=== PATIENT | male | born 1980 | race African-American/Black ===

== ENCOUNTER 2018-04-29 14:13 | Observation (INO) | payer BC ==
[2018-04-29] MEDS ORDERED: NS 0.9% 1000 ML* 1,000 ML IV ONE (14:35)
[2018-04-29] MEDS ORDERED: Ondansetron INJ* 2 MG/ML VIAL ONE (14:37)
[2018-04-29] MEDS: Ondansetron INJ* 2 MG/ML VIAL IV SCH ×3 (14:40→22:45)
--- NOTE | 2018-04-29 14:43 | ED ---
Syncope/Near Syncope - HPI Summary HPI Summary: This is shaquille Gómez documenting for attending Stalin Silvestre MD. This patient is a 37 year old M presenting to ED with a chief complaint of syncope at 1345 today. The patient was sitting and talking when the episode occurred. He remembers he was feeling a bit of cramping in the L cheek, flustered and flushed before the episode. He tried taking sips of water to make it go away and that was the last thing he remembered before he lost consciousness. The episode was witnessed by his . The CC is described as lasting 2 minutes. The patient rates the pain 0/10 in severity. Symptoms aggravated by nothing. Symptoms alleviated by spontaneous resolution. Patient reports fatigue, light-headedness/dizziness as the episode was occurring and currently, nausea after eating a cookie and currently, and palpitations shortly after the episode (currently resolved). Patient denies CP, blurred vision, and LEVINE. denies diaphoresis, pallor, vomiting, and shaking. He reports there was nothing unusual about his lunch or breakfast today. He had a similar episode when he was 18 and broke his jaw because of it. - History Of Current Complaint Chief Complaint: EDSyncope Time Seen by Provider: 04/29/18 14:21 Hx Obtained From: Patient, Family/Department Head [employer] Onset/Duration: Sudden Onset, Lasting Minutes - 2 minutes, Resolved Timing: Minutes - lasting 2 minutes Context: Witnessed, Loss Of Consciousness Activity At Onset: At Rest - sitting and talking Aggravating Factor(s): Nothing Alleviating Factor(s): Spontaneous Resolution Associated Signs And Symptoms: Other - Patient reports fatigue, light-headedness /dizziness as the episode was occurring and currently, nausea after eating a cookie and currently, and palpitations shortly after the episode (currently resolved). Patient denies CP, blurred vision, and LEVINE. denies diaphoresis, pallor, vomiting, and shaking. - Allergies/Home Medications Allergies/Adverse Reactions: Allergies Allergy/AdvReac Type Severity Reaction Status Date / Time No Known Allergies Allergy Verified 04/29/18 14:34 Home Medications: Home Medications NK [No Home Medications Reported] 04/29/18 [History Confirmed 04/29/18] PMH/Surg Hx/FS Hx/Imm Hx Endocrine/Hematology History: Denies: Hx Diabetes Cardiovascular History: Denies: Hx Coronary Artery Disease, Hx Hypertension - Surgical History Surgery Procedure, Year, and Place: jaw surgery when he was 18 yo Infectious Disease History: No Infectious Disease History: Denies: Traveled Outside the [place] in Last 30 Days - Family History Known Family History: Positive: Hypertension, Diabetes, Other Family History: Father heart attack age 56 - Social History Alcohol Use: None Substance Use Type: Reports: None Smoking Status (MU): Never Smoked Tobacco Review of Systems Positive: Fatigue. Negative: Skin Diaphoresis Negative: Blurred Vision Positive: Palpitations - shortly after the episode (currently resolved). Negative: Chest Pain Positive: Nausea - after eating a cookie and currently Positive: Other - denies pallor Neurological: Other - light-headedness/dizziness as the episode was occurring and currently; denies shaking Negative: Headache All Other Systems Reviewed And Are Negative: Yes Physical Exam - Summary Physical Exam Summary: VITAL SIGNS: Reviewed. GENERAL: Patient is a well-developed and nourished MALE who is lying comfortable in the stretcher. Patient is not in any acute respiratory distress. HEAD AND FACE: No signs of trauma. No ecchymosis, hematomas or skull depressions. No sinus tenderness. EYES: PERRLA, EOMI x 2, No injected conjunctiva, no nystagmus. EARS: Hearing grossly intact. Ear canals and tympanic membranes are within normal limits. MOUTH: Oropharynx within normal limits. NECK: Supple, trachea is midline, no adenopathy, no JVD, no carotid bruit, no c- spine tenderness, neck with full ROM. CHEST: Symmetric, no tenderness at palpation LUNGS: Clear to auscultation bilaterally. No wheezing or crackles. CVS: Regular rate and rhythm, S1 and S2 present, no murmurs or gallops appreciated. ABDOMEN: Soft, non-tender. No signs of distention. No rebound no guarding, and no masses palpated. Bowel sounds are normal. EXTREMITIES: FROM in all major joints, no edema, no cyanosis or clubbing. NEURO: Alert and oriented x 3. No acute neurological deficits. Speech is normal and follows commands. SKIN: Dry and warm GCS 15 Triage Information Reviewed: Yes Vital Signs On Initial Exam: Initial Vitals Temp Pulse Resp BP Pulse Ox 97.3 F 58 16 110/64 97 04/29/18 14:14 04/29/18 14:14 04/29/18 14:14 04/29/18 14:14 04/29/18 14:14 Vital Signs Reviewed: Yes Diagnostics - Vital Signs Vital Signs Temp Pulse Resp BP Pulse Ox 04/29/18 14:14 97.3 F 58 16 110/64 97 - Laboratory Result Diagrams: 04/29/18 14:37 04/29/18 14:37 Lab Statement: Any lab studies that have been ordered have been reviewed, and results considered in the medical decision making process. - Radiology CXR Radiology Interpretation Completed By: Radiologist - NORMAL CHEST. ED physician has reviewed this radiology report. - CT Brain CT CT Interpretation Completed By: Radiologist - NO ACUTE INTRACRANIAL PATHOLOGY. ED physician has reviewed this radiology report. - EKG 1423 Cardiac Rate: Bradycardia - 54 BPM EKG Rhythm: Sinus Bradycardia EKG Interpretation: No ST elevations Re-Evaluation - Re-Evaluation First Eval Re-Evaluation Time: 16:15 Comment: Discussed with the patient the plan for admission for the syncopal episode. His status is within normal limits. He understands and agrees with this plan. Course/Dx Assessment/Plan: The patient is a 37-year-old male who presents to the emergency department with a chief complaint of having syncopal episode. There was positive loss of consciousness. He was witnessed by a coworkers. This results without a significant abnormality except for slight normocytic normochromic anemia, glucose 126 and total CPK of 252. Head CT shows no acute intracranial pathology. Chest x-ray shows no acute pathology. EKG: Normal sinus rhythm without any ST elevations. In the ED course the patient continues to be asymptomatic. The patient was given IV fluids. Since the patient reported some palpitations I will need to rule out any type of arrhythmias. I discussed the case with from the hospitalist services and he agreed to admit the patient to his services further workup and management. - Diagnoses Differential Diagnosis/HQI/PQRI: Positive: Other - syncope Provider Diagnoses: Syncope - Physician Notifications Discussed Care of Patient With: Trell Brown Time Discussed With Above Provider: 16:29 Instructed by Provider To: Other - Consulted Dr. Brown at 1629 about the patient and he accepts the patient for admission. Discharge - Sign-Out/Discharge Documenting (check all that apply): Patient Departure - Discharge Plan Condition: Stable Disposition: ADMITTED TO [facility]
--- NOTE | 2018-04-29 14:49 | RAD ---
INDICATION: Syncope COMPARISON: None TECHNIQUE: An AP portable view obtained at 1433 hours is submitted. FINDINGS: Bones/Soft Tissues: There are no acute bony findings. Cardiomediastinal: The cardiomediastinal silhouette is normal. Lungs: There are no infiltrates. Pleura: There are no pleural effusions. Other: None IMPRESSION: NORMAL CHEST.
[2018-04-29 14:57] LABS: ABS Basophils 0 10^3/ul (0-0.2); ABS Eosinophils 0 10^3/ul (0-0.6); ABS Lymphocytes 1.8 10^3/ul (1.0-4.8); ABS Monocytes 0.4 10^3/ul (0-0.8); ABS Neutrophils 2.2 10^3/ul (1.5-7.7); ABS Nucleated RBC 0 10^3/ul; Hematocrit 39 % (42-52); Hemoglobin 13.6 g/dl (14.0-18.0); Lymphocyte % 39.7 % (25-47); Mean Corpuscular HGB Conc 35 g/dl (31-36); Mean Corpuscular Hemoglobin 31 pg (27-31); Mean Corpuscular Volume 88 fL (80-94); Mean Platelet Volume 8.3 um3 (7.4-10.4); Nucleated Red Blood Cells % 0.1; Platelet Count 189 10^3/ul (150-450); Red Blood Count 4.42 10^6/ul (4.00-5.40); Red Cell Distribution Width 13 % (10.5-15); White Blood Count 4.4 10^3/ul (3.5-10.8)
[2018-04-29 15:06] LABS: EGFR Non-African American 91.3 (>60)
--- NOTE | 2018-04-29 15:13 | RAD ---
HISTORY: Syncope COMPARISONS: None TECHNIQUE: Multiple contiguous axial CT scans were obtained of the head without intravenous contrast. FINDINGS: HEMORRHAGE/INFARCT: There is no hemorrhage or acute infarct. MASSES/SHIFT: There is no mass or shift. EXTRA-AXIAL SPACES: There are no extra-axial fluid collections. SULCI AND VENTRICLES: The sulci and ventricles are normal in size and position for the patient's stated age. CEREBRUM: There are no focal parenchymal abnormalities. BRAINSTEM: There are no focal parenchymal abnormalities. CEREBELLUM: There are no focal parenchymal abnormalities. VESSELS: The vessels are grossly normal. PARANASAL SINUSES: The paranasal sinuses are clear. ORBITS: The orbits are unremarkable. BONES AND SOFT TISSUE: No bone or soft tissue abnormalities are noted. OTHER: None IMPRESSION: NO ACUTE INTRACRANIAL PATHOLOGY.
[2018-04-29 17:14] LABS: Urine Appearance Clear; Urine Blood Negative (Negative); Urine Color Yellow; Urine Ketones Trace (Negative); Urine Protein Negative (Negative); Urine Specific Gravity 1.008 (1.010-1.030); Urine Urobilinogen Negative (Negative)
[2018-04-29] MEDS ORDERED: Acetaminophen TAB* 325 MG PO PRN (17:51)
[2018-04-29] MEDS ORDERED: Melatonin 3 MG TAB PO PRN (17:52)
[2018-04-29] MEDS ORDERED: Ondansetron ODT TAB* 4 MG SL PRN (17:52)
[2018-04-29] MEDS ORDERED: Potassium Chlor TAB* 20 MEQ TAB.ER PO ONE (17:56)
--- NOTE | 2018-04-29 21:47 | HP ---
HOSPITAL MEDICINE HISTORY AND PHYSICAL: DATE OF ADMISSION: 04/29/18 PRIMARY CARE PHYSICIAN: None. ATTENDING PHYSICIAN: Lala Pedro MD * (dictation provided by Sade Ghosh NP) CHIEF COMPLAINT: Episode of fainting. HISTORY OF PRESENT ILLNESS: Mr. Thibodeaux is a 37-year-old male with no significant past medical history other than a history of vasovagal syncope described in relationship to needlesticks, seeing blood, and a foot injury. Mr. Thibodeaux states that he has been feeling well recently. He has had no acute complaints. He works in the [employer] in [employer]. He woke early this morning to travel to [place]. He did eat breakfast. He was feeling well. During a meeting and shortly after eating lunch, he described feeling woozy and nauseous. He mentioned to a coworker that he was not feeling well and then was noted to have his head drop backwards and become unresponsive. He was taken and laid on the floor. Coworkers with him at the bedside today states that he was unresponsive for about 2 minutes. He had his eyes closed. He was not shaking. They were calling his name repeatedly, but he did not respond. He is not noted to have loss of bowel or bladder. He is not noted to bite his tongue. At the end of about 2 minutes, the patient opened his eyes and the coworker asked him to say something and he stated "what would you like me to say?" The patient seems to have awoken and been very coherent and appropriate. EMS was arrived and noted that the patient's heart rate was about 54. The patient states this is his baseline and that his systolic blood pressure was running around 100. In the emergency room, the patient had labs, which were unremarkable. His electrolytes are essentially normal. His kidney function is normal. His troponin is normal. His magnesium is normal. His TSH is normal. He has a very mild anemia with a hemoglobin of 13.6 only. He had a CT of the brain, which showed no acute intracranial pathology. A chest x-ray, which showed normal CT chest and the EKG confirmed a sinus bradycardia with no evidence of ischemia. PAST MEDICAL HISTORY: None. MEDICATIONS: 1. Vitamin D. 2. Vitamin C. 3. Co Q10. 4. Folic acid. FAMILY HISTORY: The patient reports his mother related to melanoma and his father had a heart attack, but is alive and well. He states that multiple members of his family on both sides have diabetes. SOCIAL HISTORY: No report of alcohol, tobacco, or drug use. The patient lives with his , La Nena, and she is the healthcare proxy. REVIEW OF SYSTEMS: A 14-point review of systems was completed with Mr. Thibodeaux and all those not mentioned above were negative. PHYSICAL EXAMINATION GENERAL: Mr. Thibodeaux is lying in the bed with coworker at the bedside. He is in no acute distress. VITAL SIGNS: Temperature 97.7, pulse rate 60, respiratory rate 21, O2 saturation 99% on room air, blood pressure 124/74. LUNGS: Clear to auscultation bilaterally with no accessory muscle use and good aeration. HEART: S1, S2. No murmur, rub, or gallop and regular. ABDOMEN: Soft, nontender with bowel sounds positive x4. EXTREMITIES: No cyanosis or edema. NEURO: He is alert. He is oriented x3. He moves all extremities equally. There is no facial asymmetry or focal weakness. Extraocular movements are intact. SKIN: Intact. LABORATORY DATA/DIAGNOSTIC STUDIES: WBC 4.4, hemoglobin 13.6, hematocrit 39, platelet count 189. Sodium 139, potassium 3.6, chloride 103, serum bicarbonate 27, BUN 13, creatinine 0.94, glucose 126. Lactic acid 1.1. Troponin 0.00. TSH 2.83. Urine shows no evidence of infection. Toxicology screen is negative including a negative serum alcohol. The CT brain, chest x-ray, and EKG are as read per above. ASSESSMENT: Mr. Thibodeaux is a 37-year-old male with a past medical history of vasovagal episodes in settings related to needlesticks blood and injury, who presents today to the hospital after having a syncopal episode while seated at rest after eating lunch in a meeting. Plans are for the patient to be observed in the hospital overnight for the followin. Syncope: Although the patient describes feeling nauseous and woozy, which would be consistent with vasovagal episode, there is no inciting factor identified. It is possible that the patient had a heart arrhythmia. He will be monitored on telemetry monitoring overnight. I also would like to check a transthoracic echocardiogram to look valvular abnormality or outflow obstructions. I will replete his potassium. His magnesium is appropriate at 2.4. In the event that cause is not found, the patient may benefit from outpatient Holter or loop recorder monitoring. 2. DVT prophylaxis with SCDs. 3. Code status is full code. TIME SPENT: Approximately 60 minutes were spent on the admission of this patient with half of the time spent with the patient and his friend at the bedside reviewing the events leading up to this hospitalization, performing the physical examination and reviewing the plan of care. SADE GHOSH NP [id number]/CPS #: [id number] GENARO
[2018-04-30] MEDS: Ondansetron INJ* 2 MG/ML VIAL IV SCH ×2 (03:38→07:39)
[2018-04-30 12:01] VITALS: BP 114/72
--- NOTE | 2018-04-30 12:44 | ECHO ---
Patient: JOSEPH MCDONALD [facility] Rec#: [id number] : 1980 Date: 04/30/2018 Age: 37y Height: 175.3 cm / 69.0 in Weight: 78.9 kg / 173.9 lbs Sex: M BSA: 1.95 Room#: 453 Admit Date#: 04/29/2018 Type: Inpatient Referring: Sade Ghosh NP Reading: Manohar Wright MD Scientific Illustrator: Vera Pham RN RDCS Transthoracic Echocardiogram Indication: Syncope BP: 113/56 HR: 56 Rhythm: Bradycardia Findings History: Vasovagal syncope in the past, family history of CAD and valve abnormalities. Technical Comments: The study quality is fair. Completed at 0940. Left Ventricle: The left ventricular chamber size is normal. Septal wall hypertrophy is observed.Borderline at 1.1 cm. Global left ventricular wall motion and contractility are within normal limits. Left ventricular systolic function is at the lower limits of normal. The estimated ejection fraction is 50-55%. Normal left ventricular diastolic filling is observed. Left Atrium: The left atrial chamber size is normal. Right Ventricle: The right ventricular cavity size is normal. The right ventricular global systolic function is low normal. Right Atrium: The right atrial cavity size is normal. Aortic Valve: The aortic valve appears bicuspid. The aortic valve leaflets are mildly thickened. There is mild aortic regurgitation. There is no evidence of aortic stenosis. Mitral Valve: The mitral valve leaflets are mildly thickened. There is a trace of mitral regurgitation. There is no evidence of mitral stenosis. Tricuspid Valve: The tricuspid valve leaflets are normal. There is trace tricuspid regurgitation. No pulmonary hypertension is noted. There is no tricuspid stenosis. Pulmonic Valve: The pulmonic valve appears normal. There is mild to moderate pulmonic regurgitation. Pericardium: There is no significant pericardial effusion. Aorta: There is no dilatation of the ascending aorta. There is no dilatation of the aortic arch. There is no dilation of the aortic root. Pulmonary Artery: The main pulmonary artery appears normal. Venous: The inferior vena cava appears normal in size. There is an approximate 50% respiratory change in the inferior vena cava dimension. Summary: There was not any prior study for comparison. Conclusions Global left ventricular wall motion and contractility are within normal limits. Left ventricular systolic function is at the lower limits of normal. The estimated ejection fraction is 50-55%. The right ventricular global systolic function is low normal. There is mild aortic regurgitation. There is a trace of mitral regurgitation. There is trace tricuspid regurgitation. No pulmonary hypertension is noted. There is no significant pericardial effusion. Measurements Name Value Normal Range RVIDd (AP) 2D 2.5 cm (0.9 - 2.6) RVDdMajor (2D) 3.5 cm (2.2 - 4.4) RAd ISD 4CH 4.4 cm (3.4 - 4.9) RA (A4C)W 4 cm (2.9 - 4.6) IVSd (2D) 1.1 cm (0.6 - 1) LVPWd (2D) 1 cm (0.6 - 1) LVIDd (2D) 5.1 cm (3.6 - 5.4) LVIDs (2D) 3.6 cm - LV FS (2D) 29 % (25 - 45) Aortic Annulus 2.2 cm (1.4 - 2.6) Ao root diameter (2D) 3.2 cm (2.1 - 3.5) Ascending Ao 2.3 cm (2.1 - 3.4) Aortic arch 2.1 cm (1.8 - 3.4) LA dimension (AP) 2D 2.6 cm (2.3 - 3.8) LAd ISD 4CH 3.9 cm (2.9 - 5.3) LA ISD 4CH W 3.6 cm (2.5 - 4.5) Name Value Normal Range LA ESV SP 4CH (A/L) 29 ml - LA ESV SP 2CH (A/L) 39 ml - LA ESV BP (A/L) 34 ml - LA ESV BP (A/L) index 17.5 ml/m2 - LA ESV SP 4CH (MOD) 25 ml - LA ESV SP 2CH (MOD) 37 ml - Name Value Normal Range MV E-wave Vmax 0.8 m/sec - MV deceleration time 315 msec - MV A-wave Vmax 0.5 m/sec - MV E:A ratio 1.6 ratio - LV septal e' Vmax 0.1 m/sec - LV lateral e' Vmax 0.23 m/sec - LV E:e' septal ratio 8 ratio - LV E:e' lateral ratio 3.5 ratio - Name Value Normal Range AV Vmax 1.4 m/sec - AV VTI 29.8 cm - AV peak gradient 7.4 mmHg - AV mean gradient 3.9 mmHg - LVOT diameter 2.2 cm - LVOT Vmax 0.99 m/sec - LVOT VTI 20.7 cm - LVOT peak gradient 3.9 mmHg - LVOT mean gradient 2 mmHg - NAM (continuity Vmax) 2.7 cm2 - NAM (continuity VTI) 2.6 cm2 - BRANDEE Vmax 1.3 m/sec - Name Value Normal Range TR Vmax 1.9 m/sec - TR peak gradient 14 mmHg - RAP 8 mmHg - RVSP 22 mmHg - IVC diameter 1.8 cm - Name Value Normal Range PV Vmax 0.7 m/sec -
--- NOTE | 2018-04-30 13:10 | PN ---
Subjective Date of Service: 04/30/18 Interval History: Mr. Thibodeaux reports feeling well today. He did feel a bit lightheaded after eating dinner last night but did not syncopize. He has eaten breakfast and lunch without incident. He denies chest pain, SOB, nausea, or abdominal pain. Objective Active Medications: Acetaminophen (Tylenol Tab*) 650 mg PO Q4H PRN Melatonin (Melatonin) 3 mg PO BEDTIME PRN Ondansetron HCl (Zofran Odt Tab*) 4 mg SL Q6H PRN Vital Signs: Temp Pulse Resp BP Pulse Ox 98.4 F 65 16 114/72 99 04/30/18 11:43 04/30/18 11:43 04/30/18 11:43 04/30/18 11:43 04/30/18 11:43 Oxygen Devices in Use Now: None Appearance: Male lying in bed in NAD Eyes: No Scleral Icterus Ears/Nose/Mouth/Throat: Mucous Membranes Moist Neck: Trachea Midline Respiratory: Symmetrical Chest Expansion and Respiratory Effort, Clear to Auscultation Cardiovascular: NL Sounds; No Murmurs; No JVD, No Edema Abdominal: NL Sounds; No Tenderness; No Distention Extremities: No Edema Skin: No Rash or Ulcers Neurological: Alert and Oriented x 3, NL Muscle Strength and Tone Nutrition: Taking PO's Result Diagrams: 04/29/18 14:37 04/29/18 14:37 Assess/Plan/Problems-Billing Assessment: Mr. Thibodeaux is a 37 yo M with a PMH of anxiety and panic attacks who was admitted on 04/29/18 after a syncopal episode at work. - Patient Problems (1) Syncope Comment: - Workup negative. Vitals stable, no orthostasis. No events noted on telemetry and echo normal. Labs normal, no sign of infection. - Suspect possible vasovagal episode or stress reaction, though no clear inciting factor identified. - Patient to follow up with PCP in [place]. Status and Disposition: OBV. Discharge to home.
--- NOTE | 2018-05-01 03:15 | DS ---
CC: Dr. Juancarlos Landeros, [facility]'s group.* HOSPITAL MEDICINE DISCHARGE SUMMARY: DATE OF ADMISSION: 04/29/18 DATE OF DISCHARGE: 04/30/18 ATTENDING PHYSICIAN: Dr. Lala Pedro * (dictation provided by Sade Ghosh NP ). PRIMARY DIAGNOSIS: Syncope. SECONDARY DIAGNOSIS: Anxiety with panic attacks. MEDICATIONS: None. HOSPITAL COURSE: Mr. Thibodeaux is a 37-year-old male with a past medical history of anxiety and panic attacks, who presented to the hospital on 04/29/18, after having a reported syncopal episode while at work. Mr. Thibodeaux reported that he had been feeling in his normal state of health with no complaints. He woke at 6 a.m. and drove from [place] to [place]. He ate both breakfast and lunch. While seated at a meeting directly after eating lunch, he began to feel woozy and lightheaded. He was noted to have his head fall backwards and become unresponsive while seated. His coworkers moved him onto the ground and laid him down. He had no shaking or loss of bowel or bladder. He did not bite his tongue. His coworkers were calling his name for about 2 minutes at which time he opened his eyes. The co-worker asked him to say something and he stated "what do you want me to say?" It seems that he woke up coherent and clear headed. Mr. Thibodeaux was admitted to the hospital. His labs were unremarkable. His troponin was 0.00. This showed no evidence of infection with no leukocytosis or fever. Urine tox screen was negative. His vitals were stable, although he does have a slight bradycardia with running around 55 to 60. Mr. Thibodeaux had no orthostasis. He was monitored on telemetry unit with no evidence of arrhythmias. He went on for a transthoracic echocardiogram, which showed an intact ejection fraction and no evidence of significant valvular or wall motion abnormalities. Mr. Thibodeaux is medically stable for discharge to home. His workup here has been negative. The symptoms he described are consistent with a vasovagal episode, although the concerning issue is that there did not seem to be an inciting factor. The patient does report that he has a history of anxiety with panic attacks and a question whether or not this could be a psychosomatic type presentation. However, given the negative workup, he is medically stable for discharge to home. I strongly recommended that he follow up with Dr. Landeros when he returns to [place] for continued evaluation. But he should certainly return to the hospital if he has any persistent episodes or other concerning symptoms. DISPOSITION: Home. DIET: Regular. ACTIVITY: As tolerated. FOLLOWUP PLANS: Please follow up with Dr. Landeros when you return to [place]. The patient is leaving today. TIME SPENT: Approximately 60 minutes were spent on the discharge of this patient, more than half the time spent with the patient at the bedside reviewing the events leading up to and during this hospitalization, performing the physical examination, and reviewing the plan of care. SADE GHOSH NP [id number]/[facility] #: [id number] GENARO
== END 2018-04-30 14:15 | disposition home or self-care (01) ==
LOC: ED 14:13 → MEDTELE 17:18
PROVIDERS: ADMIT Internal Medicine; ATTEND Internal Medicine
DX: R55 Syncope and collapse (principal); F41.9 Anxiety disorder, unspecified; R00.2 Palpitations; R11.0 Nausea; R53.83 Other fatigue
CPT/HCPCS: 36415; 70450; 71045; 80053; 80307; 80320; 81003; 82550; 83605; 83735; 83880; 84443; 84484; 85025; 93005; 93306; 96374; 96375; 99283; A9270-GY; G0378; G0480; J2405